=== PATIENT | male | born 1995 | race Caucasian/White ===

== ENCOUNTER 2018-09-11 19:05 | Emergency (ER) | payer OTHER ==
[~2018-09-11] VITALS: Ht 154.9 cm; Wt 59.4 kg
[2018-09-11 19:22] VITALS: BP 128/56; Ht 154.9 cm; Wt 59.4 kg
== END 2018-09-11 21:13 | disposition home or self-care (01) ==
LOC: ED 19:05
DX: R10.11 Right upper quadrant pain (principal); R11.0 Nausea; R19.7 Diarrhea, unspecified